=== PATIENT | male | born 1940 | race Two or more races ===

== ENCOUNTER 2018-12-07 21:42 | Inpatient (IN) | payer MEDICARE ==
[~2018-12-07] VITALS: Ht 172.7 cm; Wt 67.3 kg
[2018-12-07] MEDS ORDERED: SODIUM CHLORIDE 0.9% 1,000 ML IV ONE (23:00)
[2018-12-07] MEDS ORDERED: ONDANSETRON HCL 4 MG/2 ML VIAL IV ONE (23:00)
[2018-12-07 23:05] LABS: Basophils # (auto) 0 uL; Basophils % (auto) 0.3 % (0.0-2.0); Eosinophils # (auto) 0 uL; Eosinophils % (auto) 0.2 % (0.0-7.0); Hematocrit 43.1 % (41.0-53.0); Hemoglobin 14.4 g/dL (13.5-17.5); Lymphocytes # (auto) 0.9 uL; Lymphocytes % (auto) 6.1 % (10.0-50.0); Mean Corpuscular Hemoglobin 30.5 pg (28.0-32.0); Mean Corpuscular Hgb Conc. 33.5 g/dL (32.0-36.0); Monocytes # (auto) 0.5 uL; Monocytes % (auto) 3.7 % (0.0-12.0); Neutrophils # (auto) 12.6 uL; Neutrophils % (auto) 89.7 % (37.0-80.0); Platelet Count (auto) 365 10^3/uL (140-450); Red Blood Cells 4.73 10^6/uL (4.5-5.90); Red Cell Distribution Width 13.4 % (11.8-14.3); White Blood Cell 14.1 10^3/uL (4.4-10.8)
[2018-12-07 23:22] LABS: Albumin 2.8 g/dL (3.4-5.0); BUN/Creatinine Ratio 18.5; Calcium 8.8 mg/dL (8.5-10.1); Potassium 4.8 mmol/L (3.5-5.1)
[2018-12-07 23:25] LABS: Bilirubin, Total 0.5 mg/dL (0.2-1.0); Total Protein 8.5 g/dL (6.4-8.2)
[2018-12-08] MEDS ORDERED: cefTRIAXone 1GM/50ML D5W 50 ML IV ONE (00:15)
[2018-12-08] MEDS ORDERED: InsuLIN REG 1unit/0.01ml Soln (100units/ml) IV ONE (00:30)
[2018-12-08] MEDS ORDERED: SODIUM CHLORIDE 0.9% 500 ML IV ONE (01:15)
[2018-12-08] MEDS ORDERED: ONDANSETRON HCL 4 MG/2 ML VIAL IV PRN (01:15)
[2018-12-08] MEDS ORDERED: ACETAMINOPHEN 325 MG TAB PO PRN (01:15)
[2018-12-08] MEDS ORDERED: SODIUM CHLORIDE 0.9% 1,000 ML IV SCH (01:15)
[2018-12-08] MEDS ORDERED: DEXTROSE (50%) 50ML SYRG IV PRN (01:15)
[2018-12-08] MEDS ORDERED: TEMAZEPAM 15 MG CAP PO PRN (01:15)
[2018-12-08] MEDS ORDERED: LEVOFLOXACIN 250MG 50 ML IV ONE (01:15)
[2018-12-08 02:35] LABS: Urine Bacteria MANY /hpf (None Seen); Urine Blood 2+ /uL (Negative); Urine Specific Gravity 1.016 (1.001-1.035); Urine WBC 63 /hpf (0 - 3); Urine WBC Clumps PRESENT /hpf (None Seen)
[2018-12-08 03:16] VITALS: BP 141/71
--- NOTE | 2018-12-08 03:30 | NUR ---
MS admit from [facility] admitted to tele/MS after SBAR received. Patient oriented to Jolene Moya RN primary RN, unit, room, bed, and unit policies regarding patient care and visiting hours. Patient weighed by bedscale and encouraged to call if they need something. Discussed on POC. All questions and concerns addressed, patient verbalized understanding, will continue to monitor Note:
--- NOTE | 2018-12-08 03:31 | NUR ---
Wound (scab) noted on right eyebrow, picture taken for reference, wound consult placed, will continue care
[2018-12-08] MEDS ORDERED: INSUINJ18 SC (03:57)
[2018-12-08] MEDS ORDERED: DULA0.5I SC (03:57)
[2018-12-08] MEDS ORDERED: METO-169 PO (03:57)
[2018-12-08] MEDS ORDERED: ISOS30TA4 PO (03:57)
[2018-12-08] MEDS ORDERED: AMLO5TAB13 PO (03:57)
[2018-12-08] MEDS: ACCU-CHEK COMFORT CURVE STRIP VI SCH ×6 (04:19→23:45)
[2018-12-08] MEDS: InsuLIN REG 1unit/0.01ml Soln (100units/ml) SC SCH ×5 (04:20→23:46)
[2018-12-08 05:22] VITALS: BP 133/73
[2018-12-08] MEDS: PANTOPRAZOLE 40 MG TAB PO SCH (05:46)
--- NOTE | 2018-12-08 07:40 | NUR ---
Opening Shift Note Assumed care of patient, awake and alert. No S/S of distress/SOB or pain. Instructed on POC and to call for assist PRN, will continue to monitor for changes Q1hr and PRN.
[2018-12-08 09:00] VITALS: BP 158/80
[2018-12-08] MEDS: CILOSTAZOL 100 MG TAB PO SCH ×2 (09:27→21:53)
[2018-12-08] MEDS: METOPROLOL SUCCINATE XL 50 MG TAB PO SCH (09:27)
[2018-12-08] MEDS: ISOSORBIDE MONONITRATE 60 MG TAB PO SCH (09:28)
[2018-12-08] MEDS: amLODIPine BESYLATE 5 MG TAB PO SCH (09:28)
--- NOTE | 2018-12-08 11:00 | NUR ---
ROUNDING Dr Alford rounding, verbal order given to increase IV fluids to 125ml/hr.
--- NOTE | 2018-12-08 11:57 | NUR ---
UROLOGY Received call from Dr García for urology consult, reviewed tests. T/O read back to insert Baldwin catheter 18 F coude, obtain sterile specimen for culture. Orders noted.
[2018-12-08] MEDS: SODIUM CHLORIDE 0.9% 1,000 ML IV SCH ×2 (12:45→20:45)
[2018-12-08 13:00] VITALS: BP 125/73
--- NOTE | 2018-12-08 15:40 | NUR ---
WOUND CARE NOTE: Wound care consult received for scab to right eyebrow. Reviewed photos from nursing. Patient is a 78 yo male admitted for metabolic encephalopathy. Patient with a history of HLD, PA, DM, right nephrectomy and CABG. Last Bry score is 20. No open wounds noted. Scab to right eyebrow is intact. No need for wound care team.
[2018-12-08] MEDS ORDERED: LIDOCAINE 2% JELLY 11ml (GLYDO) UR ONE (16:00)
--- NOTE | 2018-12-08 16:30 | NUR ---
UROLOGY CONSULT SAMM Key rounding on patient. CT and lab results discussed with patient along with need for downey catheter. Verbal orders given to Lidocaine with Downey insertion. Patient verbalized understanding.
--- NOTE | 2018-12-08 16:45 | NUR ---
Downey catheter insertion Patient assessed and determined to be in need of downey catheter. Order obtained from MD. Patient educated on catheter and reason for insertion. All questions answered. Downey catheter 18 [place] Coude inserted with clean sterile technique. Patient tolerated well. Urine draining, sample sent to lab.
[2018-12-08 17:00] VITALS: BP 134/70
--- NOTE | 2018-12-08 19:40 | NUR ---
Opening Shift Note Assumed care of patient, awake and alert. No S/S of distress/SOB or pain. Instructed on POC and to call for assist PRN. Bed in lowest locked position, call light within reach, side rails up x2. Will continue to monitor for changes Q1hr and PRN.
[2018-12-08 21:29] VITALS: BP 132/68
[2018-12-08] MEDS: LEVOFLOXACIN 250MG 50 ML IV SCH (21:52)
[2018-12-09] MEDS: SODIUM CHLORIDE 0.9% 1,000 ML IV SCH ×3 (02:50→19:30)
[2018-12-09] MEDS: InsuLIN REG 1unit/0.01ml Soln (100units/ml) SC SCH ×5 (04:00→23:43)
[2018-12-09] MEDS: ACCU-CHEK COMFORT CURVE STRIP VI SCH ×9 (04:16→23:44)
[2018-12-09 04:59] VITALS: BP 134/57
[2018-12-09] MEDS: PANTOPRAZOLE 40 MG TAB PO SCH (06:29)
[2018-12-09 06:50] LABS: Basophils # (auto) 0 uL; Basophils % (auto) 0.2 % (0.0-2.0); Eosinophils # (auto) 0.1 uL; Eosinophils % (auto) 0.6 % (0.0-7.0); Hematocrit 31.7 % (41.0-53.0); Hemoglobin 10.8 g/dL (13.5-17.5); Lymphocytes % (auto) 9.5 % (10.0-50.0); Mean Corpuscular Hemoglobin 30.8 pg (28.0-32.0); Mean Corpuscular Hgb Conc. 34.2 g/dL (32.0-36.0); Monocytes # (auto) 0.7 uL; Monocytes % (auto) 6.1 % (0.0-12.0); Neutrophils # (auto) 9.1 uL; Neutrophils % (auto) 83.6 % (37.0-80.0); Platelet Count (auto) 291 10^3/uL (140-450); Red Blood Cells 3.53 10^6/uL (4.5-5.90); Red Cell Distribution Width 12.9 % (11.8-14.3); White Blood Cell 10.9 10^3/uL (4.4-10.8)
[2018-12-09 07:26] LABS: Potassium 3.8 mmol/L (3.5-5.1)
[2018-12-09 07:39] LABS: BUN/Creatinine Ratio 21.1; Bilirubin, Total 0.3 mg/dL (0.2-1.0); Calcium 7.7 mg/dL (8.5-10.1); Total Protein 6.1 g/dL (6.4-8.2)
[2018-12-09 08:51] VITALS: BP 148/76
[2018-12-09] MEDS: CILOSTAZOL 100 MG TAB PO SCH ×2 (10:07→21:20)
[2018-12-09] MEDS: METOPROLOL SUCCINATE XL 50 MG TAB PO SCH (10:07)
[2018-12-09] MEDS: amLODIPine BESYLATE 5 MG TAB PO SCH (10:08)
[2018-12-09] MEDS: ISOSORBIDE MONONITRATE 60 MG TAB PO SCH (10:10)
[2018-12-09 14:21] VITALS: BP 138/62
[2018-12-09 16:36] VITALS: BP 143/72
--- NOTE | 2018-12-09 19:30 | NUR ---
Opening Shift Note Assumed care of patient, awake and alert. No S/S of distress/SOB or pain. Instructed on POC and to call for assist PRN. Bed in lowest locked position, call light within reach, side rails up x2, fall precautions in place. Will continue to monitor for changes Q1hr and PRN.
[2018-12-09] MEDS: LEVOFLOXACIN 250MG 50 ML IV SCH (21:20)
[2018-12-09 21:30] VITALS: BP 143/69
[2018-12-10] MEDS: ACCU-CHEK COMFORT CURVE STRIP VI SCH ×6 (04:15→11:16)
[2018-12-10] MEDS: InsuLIN REG 1unit/0.01ml Soln (100units/ml) SC SCH ×3 (04:16→11:17)
[2018-12-10] MEDS: SODIUM CHLORIDE 0.9% 1,000 ML IV SCH ×2 (04:24→12:45)
[2018-12-10 05:00] VITALS: BP 150/72
[2018-12-10 05:52] LABS: Basophils # (auto) 0 uL; Basophils % (auto) 0.3 % (0.0-2.0); Eosinophils # (auto) 0.1 uL; Eosinophils % (auto) 1.1 % (0.0-7.0); Hemoglobin 11.1 g/dL (13.5-17.5); Lymphocytes # (auto) 1.2 uL; Lymphocytes % (auto) 14.2 % (10.0-50.0); Mean Corpuscular Hgb Conc. 33.7 g/dL (32.0-36.0); Mean Corpuscular Volume 89.1 fL (80.0-100.0); Monocytes # (auto) 0.5 uL; Monocytes % (auto) 5.3 % (0.0-12.0); Neutrophils # (auto) 6.8 uL; Neutrophils % (auto) 79.1 % (37.0-80.0); Platelet Count (auto) 320 10^3/uL (140-450); Red Blood Cells 3.71 10^6/uL (4.5-5.90); White Blood Cell 8.7 10^3/uL (4.4-10.8)
[2018-12-10 06:11] LABS: Calcium 7.7 mg/dL (8.5-10.1); Potassium 4.1 mmol/L (3.5-5.1)
[2018-12-10 06:13] LABS: BUN/Creatinine Ratio 17.9
[2018-12-10 06:16] LABS: Bilirubin, Total 0.2 mg/dL (0.2-1.0); Total Protein 6.1 g/dL (6.4-8.2)
[2018-12-10] MEDS: PANTOPRAZOLE 40 MG TAB PO SCH (06:33)
--- NOTE | 2018-12-10 08:00 | NUR ---
RECEIVED PT RESTING IN BED, CALL LIGHT WITH IN REACH, SOW DRAINING TO GRAVITY, PT DENIES ANY PAIN OR DISCOMFORT.
[2018-12-10 09:00] VITALS: BP 153/81
[2018-12-10] MEDS: ISOSORBIDE MONONITRATE 60 MG TAB PO SCH (09:38)
[2018-12-10] MEDS: amLODIPine BESYLATE 5 MG TAB PO SCH (09:39)
[2018-12-10] MEDS: CILOSTAZOL 100 MG TAB PO SCH (09:39)
[2018-12-10] MEDS: METOPROLOL SUCCINATE XL 50 MG TAB PO SCH (09:40)
[2018-12-10 12:25] VITALS: BP 153/81
[2018-12-10 13:00] VITALS: BP 150/75
--- NOTE | 2018-12-10 13:23 | NUR ---
Discharge instructions given as ordered. Encourage to follow up with PMD as instructed. Pt is to follow up with Dr. Tomás Noland at [address] [place] [id number], . Pt will call pcp to schedule his follow up appt, pt has an appt with Dr. García / urologist for 12/21/2018 at 2:00 pm, Pt was given Aria Beltrán information to get information about a pcp here at [place], [place]. All questions and concerns addressed. Patient verbalized understanding. Medication reconciliation form completed and copy given to patient. No home medications held in Pharmacy, and no needed vaccines to be given. IV removed with catheter intact, pressure dressing applied, downey catheter removed and changed to a leg bag.
--- NOTE | 2018-12-10 13:37 | NUR ---
Patient taken to vehicle via wheelchair with all personal belongings, accompanied by staff and family member. No distress noted at time of departure.
== END 2018-12-10 14:12 | disposition home or self-care (01) | DRG 871 ==
LOC: EDBD 21:42 → ER 21:49 → OVERFLOW 12-08 01:17 → WEST WING 12-08 02:10
PROVIDERS: ADMIT Nurse Practitioner; ATTEND Family Medicine
DX: A41.9 Sepsis, unspecified organism (principal); N17.0 Acute kidney failure with tubular necrosis; G93.41 Metabolic encephalopathy; E87.1 Hypo-osmolality and hyponatremia; N30.80 Other cystitis without hematuria; E11.65 Type 2 diabetes mellitus with hyperglycemia; K80.20 Calculus of gallbladder without cholecystitis without obstruction; E86.0 Dehydration; E11.22 Type 2 diabetes mellitus with diabetic chronic kidney disease; E78.00 Pure hypercholesterolemia, unspecified; E78.5 Hyperlipidemia, unspecified; I12.9 Hypertensive chronic kidney disease with stage 1 through stage 4 chronic kidney disease, or unspecified chronic kidney disease; I25.2 Old myocardial infarction; I70.0 Atherosclerosis of aorta; K40.20 Bilateral inguinal hernia, without obstruction or gangrene, not specified as recurrent; K52.9 Noninfective gastroenteritis and colitis, unspecified; N18.9 Chronic kidney disease, unspecified; Z79.4 Long term (current) use of insulin; Z82.3 Family history of stroke; Z82.49 Family history of ischemic heart disease and other diseases of the circulatory system; Z83.3 Family history of diabetes mellitus; Z90.5 Acquired absence of kidney; Z95.1 Presence of aortocoronary bypass graft
CPT/HCPCS: 36415; 70450; 71045; 74176; 80053; 81001; 82962; 83036; 83605; 85025; 87040; 87086; 96365; 96375; G0378; J0696; J1815

== ENCOUNTER 2018-12-19 18:06 | Emergency (ER) | payer MEDICARE ==
[~2018-12-19] VITALS: Ht 160 cm; Wt 67.1 kg
[~2018-12-19 18:06] MED LIST: AMLO5TAB13 PO; DULA0.5I SC; INSUINJ18 SC; ISOS30TA4 PO; METO-169 PO
[2018-12-19 22:24] VITALS: BP 137/65
== END 2018-12-20 00:30 | disposition left against medical advice (07) ==
LOC: ER 18:06
DX: Z46.6 Encounter for fitting and adjustment of urinary device (principal); Z53.21 Procedure and treatment not carried out due to patient leaving prior to being seen by health care provider
CPT/HCPCS: 82962